=== PATIENT | male | born 1990 | race Hispanic/Latino ===

== ENCOUNTER 2017-09-26 15:13 | Emergency (ER) | payer BC ==
[2017-09-26] MEDS ORDERED: NA CHLORIDE 0.9% 1,000 ML ONE (15:52)
[2017-09-26] MEDS ORDERED: KETOROLAC 30 MG/ML INJ ONE (15:52)
[2017-09-26 16:03] LABS: Absolute Lymphocytes (CBC) 1.6 K/uL (0.7-4.9); Absolute Monocytes 0.6 K/uL (0.1-1.3); Absolute Neutrophil 8.7 K/uL (1.8-8.0); Basophils % 0.5 % (0-1.3); Eosinophils % 1.1 % (0-4.4); Hematocrit 43.3 % (39.6-49.0); Lymphocytes % 14.2 % (15.3-44.8); MCH 29.3 pg (27.0-35.0); MCV 84.2 fL (80-100); MPV 8.8 fL (7.6-11.3); RBC Red Blood Cell Count 5.14 M/uL (4.33-5.43)
[2017-09-26 16:08] LABS: Bicarbonate 24 mEq/L (21-31); Glucose Level 276 mg/dL (65-120); Lipase 21 U/L (22-51); Sodium Level 134 mEq/L (135-145)
[2017-09-26 16:14] LABS: ALT/SGPT 60 IU/L (10-60); AST/SGOT 35 IU/L (10-42); Albumin 4.4 g/dL (3.2-5.5); Alkaline Phosphatase 80 IU/L (42-121); Amylase Level 34 U/L (28-100); BUN Blood Urea Nitrogen 9 mg/dL (6-20); Bilirubin Direct 0.1 mg/dL (0-0.2); Bilirubin Total 0.9 mg/dL (0.3-1.2); Protein, Total 8.1 g/dL (6.0-8.3)
--- NOTE | 2017-09-26 16:30 | RAD REPORT ---
EXAM DESCRIPTION: CT - Stone Protocol - 09/26/2017 4:21 pm CLINICAL HISTORY: Flank pain. COMPARISON: None. TECHNIQUE: Axial images were obtained without oral or IV contrast. Lack of contrast limits solid org an and vascular assessment. The [id number] spans the entirety of the system partially obscuring uppermost abdomen and lung bases. Coronal reformatted images were obtained and reviewed. All CT scans are performed using dose optimization technique as appropriate and may include automated exposure control or mA/KV adjustment according to patient size. FINDINGS: The lower lung vieyra are clear. Diffuse fatty liver pattern is noted. No biliary dilatation or focal lesion. Spleen is normal in size . The pancreas and adrenal glands are normal. No pathologic lymphadenopathy in the abdomen or pelvis. No urinary tract stones or obstructive uropathy. No bowel obstruction, free air, free fluid or abscess. The appendix is not identified as a discrete s tructure, however, no secondary findings of appendicitis are identified. No significant bony abnormality. IMPRESSION: No urinary tract stones or obstructive uropathy. Prominent fatty liver.
--- NOTE | 2017-09-26 17:08 | RAD REPORT ---
EXAM DESCRIPTION: US - Abdomen Exam Limited - 09/26/2017 5:02 pm CLINICAL HISTORY: Abdominal pain. COMPARISON: None. FINDINGS: Patient body habitus mildly limits quality of the study. The gallbladder demonstrates no g allstones. No pericholecystic fluid or gallbladder wall thickening. The common bile duct is normal me asuring 3 mm. The liver demonstrates no findings of intrahepatic biliary dilatation. IMPRESSION: Unremarkable examination.
[2017-09-26 17:15] LABS: Urine Blood NEGATIVE (NEG); Urine Glucose 2+ (NEG); Urine Protein 1+ (NEG); Urine Specific Gravity 1.025 (1.005-1.030)
[2017-09-26 17:40] LABS: Calcium Oxalate Crystals- Ur MODERATE (NONE SEEN); Urine Bacteria 20-50 /HPF (NONE SEEN); Urine Culture Reflex Order REFLEXED; Urine Mucus 1+ /HPF (NONE SEEN); Urine RBC <5 /HPF (NONE SEEN)
--- NOTE | 2017-09-26 18:04 | EDPHYS ---
Physician Documentation [facility] Name: Tim Daniels Age: 26 yrs Sex: Male : 1990 Arrival Date: 09/26/2017 Time: 15:17 Bed 25 Private MD: ED Physician Ronny Bowen HPI: 09/26 15:58 This 26 yrs old Male presents to ER via Ambulatory with complaints of SIDE snw PAIN. 15:58 Onset: The symptoms/episode began/occurred gradually, 4 day(s) ago, and became worse snw and became persistent. Associated signs and symptoms: Pertinent positives: abdominal pain. The patient has not experienced similar symptoms in the past. The patient has not recently seen a physician. Historical: - Allergies: 15:30 No Known Allergies; tw2 - Home Meds: 15:30 None [Active]; tw2 - PSHx: 15:30 None; tw2 - Immunization history:: Adult Immunizations up to date. - Social history:: Smoking status: Patient uses tobacco products, chewing tobacco, Patient uses alcohol, occasionally. - Ebola Screening: : Patient negative for fever greater than or equal to 101.5 degrees Fahrenheit, and additional compatible Ebola Virus Disease symptoms Patient denies travel to an Ebola-affected area in the 21 days before illness onset. ROS: 15:57 Constitutional: Negative for fever, chills, and weight loss, Eyes: Negative for injury, snw pain, redness, and discharge, ENT: Negative for injury, pain, and discharge, Neck: Negative for injury, pain, and swelling, Cardiovascular: Negative for chest pain, palpitations, and edema, Respiratory: Negative for shortness of breath, cough, wheezing, and pleuritic chest pain, splinting respirations second to right upper abd pain Back: Negative for injury and pain. 15:57 : Negative for injury, bleeding, discharge, and swelling, MS/Extremity: Negative for injury and deformity, Skin: Negative for injury, rash, and discoloration, Neuro: Negative for headache, weakness, numbness, tingling, and seizure. 15:57 Abdomen/GI: Positive for abdominal pain. Exam: 15:54 Head/Face: Normocephalic, atraumatic. Eyes: Pupils equal round and reactive to light, snw extra-ocular motions intact. Lids and lashes normal. Conjunctiva and sclera are non-icteric and not injected. Cornea within normal limits. Periorbital areas with no swelling, redness, or edema. ENT: Nares patent. No nasal discharge, no septal abnormalities noted. Tympanic membranes are normal and external auditory canals are clear. Oropharynx with no redness, swelling, or masses, exudates, or evidence of obstruction, uvula midline. Mucous membranes moist. Neck: Trachea midline, no thyromegaly or masses palpated, and no cervical lymphadenopathy. Supple, full range of motion without nuchal rigidity, or vertebral point tenderness. No Meningismus. Chest/axilla: Normal chest wall appearance and motion. Nontender with no deformity. No lesions are appreciated. 15:54 Back: No spinal tenderness. No costovertebral tenderness. Full range of motion. MS/ Extremity: Pulses equal, no cyanosis. Neurovascular intact. Full, normal range of motion. Neuro: Awake and alert, GCS 15, oriented to person, place, time, and situation. Cranial nerves II-XII grossly intact. Motor strength 5/5 in all extremities. Sensory grossly intact. Cerebellar exam normal. Normal gait. 15:54 Constitutional: The patient appears awake, anxious, obese, in obvious distress, uncomfortable. 15:54 Cardiovascular: Rate: tachycardic, Rhythm: regular, Edema: is not appreciated. 15:54 Respiratory: the patient does not display signs of respiratory distress, Respirations: shallow respirations, tachypnea, Breath sounds: are clear throughout. 15:54 Abdomen/GI: Inspection: obese Bowel sounds: normal, Palpation: moderate abdominal tenderness, severe abdominal tenderness, in the posterior aspect of right lateral abdomen and right upper quadrant. 15:54 Skin: Appearance: Temperature: hot, Moisture: diaphoretic, diaphoresis is noted. Vital Signs: 15:30 BP 182 / 107; Pulse 129; Resp 19; Temp 99.3(O); Pulse Ox 97% on R/A; Weight 158.76 kg tw2 (R); Height 5 ft. 9 in. (175.26 cm); Pain 9/10; 16:05 BP 136 / 80; Pulse 111; Resp 18; Pulse Ox 97% ; tl3 17:38 BP 108 / 60; Pulse 106; Resp 18; Pulse Ox 98% on R/A; tl3 18:25 BP 119 / 66; Pulse 103; Resp 18; Pulse Ox 97% ; tl3 15:30 Body Mass Index 51.69 (158.76 kg, 175.26 cm) tw2 MDM: 15:31 Patient medically screened. snw 18:07 Data reviewed: vital signs, nurses notes. Data interpreted: Pulse oximetry: on room air snw is 98 %. Interpretation: normal. Counseling: I had a detailed discussion with the patient and/or guardian regarding: the historical points, exam findings, and any diagnostic results supporting the discharge/admit diagnosis, lab results, radiology results, the need for outpatient follow up, to return to the emergency department if symptoms worsen or persist or if there are any questions or concerns that arise at home. Special discussion: Based on the history and exam findings, there is no indication for further emergent testing or inpatient evaluation. I discussed with the patient/guardian the need to see the primary care provider for further evaluation of the symptoms. 09/26 15:33 Order name: Amylase, Serum snw 09/26 15:33 Order name: Basic Metabolic Panel snw 09/26 15:33 Order name: CBC with Diff; Complete Time: 16:12 snw 09/26 15:33 Order name: Creatinine for Radiology; Complete Time: 16:11 snw 09/26 15:33 Order name: Hepatic Function; Complete Time: 16:15 snw 09/26 15:33 Order name: Lipase; Complete Time: 16:15 snw 09/26 15:33 Order name: Urine Microscopic Only; Complete Time: 17:43 snw 09/26 15:33 Order name: CT Stone Protocol; Complete Time: 16:36 snw 09/26 15:33 Order name: Amylase Level; Complete Time: 16:15 EDMS 09/26 15:33 Order name: Basic Metabolic Panel; Complete Time: 16:15 EDMS 09/26 16:38 Order name: US Abdomen Limited; Complete Time: 17:12 snw 09/26 17:07 Order name: Urine Dipstick--Ancillary (enter results); Complete Time: 17:21 bd 09/26 17:42 Order name: Urine Culture EDWI 09/26 15:33 Order name: IV Saline Lock; Complete Time: 15:57 snw 09/26 15:33 Order name: Labs collected and sent; Complete Time: 15:57 snw 09/26 15:33 Order name: Urine Dipstick-Ancillary (obtain specimen); Complete Time: 17:42 snw 09/26 15:59 Order name: EKG; Complete Time: 15:59 snw 09/26 15:59 Order name: EKG - Nurse/Tech; Complete Time: 17:41 snw Administered Medications: 15:56 Drug: NS 0.9% 1000 ml Route: IV; Rate: 1 bolus; Site: left forearm; tl3 17:00 Follow up: IV Status: Completed infusion; IV Intake: 1000ml tl3 15:57 Drug: TORadol 30 mg Route: IVP; Infused Over: 3 mins; Site: left forearm; tl3 17:41 Follow up: Response: No adverse reaction; Pain is decreased tl3 18:17 Drug: Cipro 500 mg Route: PO; tl3 18:26 Follow up: Response: Medication administered at discharge. tl3 18:18 Drug: fentaNYL (PF) 75 mcg Route: IM; Site: left gluteus; tl3 18:26 Follow up: Response: Medication administered at discharge. tl3 18:18 Drug: Valium 2 mg Route: PO; tl3 18:26 Follow up: Response: Medication administered at discharge. tl3 Disposition: 18:32 Co-signature as Attending Physician, Ronny Bowen MD. rn Disposition: 09/26/17 18:03 Discharged to Home. Impression: Unspecified renal colic, Strain of muscle and tendon of back wall of thorax. - Condition is Stable. - Discharge Instructions: Back Pain, Adult, Kidney Stones, Ureteral Colic, Back Injury Prevention, Ogky-vv-Tizw, Heat Therapy. - Prescriptions for Flomax 0.4 mg Oral Capsule, Sust. Release 24 hr - take 1 capsule by ORAL route once daily 1/2 hour following the same meal each day; 30 capsule. Cipro 500 mg Oral Tablet - take 1 tablet by ORAL route every 12 hours for 7 days; 14 tablet. Diclofenac Sodium 75 mg Oral Tablet Sustained Release - take 1 tablet by ORAL route 2 times per day; 30 tablet. orphenadrine citrate 100 mg Oral Tablet Sustained Release - take 1 tablet by ORAL route 2 times per day As needed; 20 tablet. - Medication Reconciliation Form, Thank You Letter, Antibiotic Education, Prescription Opioid Use form. - Follow up: Private Physician; When: 2 - 3 days; Reason: Recheck today's complaints, Continuance of care, Re-evaluation by your physician. Follow up: Emergency Department; When: As needed; Reason: Worsening of condition. Signatures: Dispatcher [employer] EDMS Jeremias Baylee, HOP FARM WORKER-C HOP FARM WORKER-Csnw Ronny Bowen MD MD rn Wise, Tara, RN RN tw2 Cheryle Niño RN RN tl3 Corrections: (The following items were deleted from the chart) 18:28 18:03 09/26/2017 18:03 Discharged to Home. Impression: Unspecified renal colic; Strain tl3 of muscle and tendon of back wall of thorax. Condition is Stable. Forms are Medication Reconciliation Form, Thank You Letter, Antibiotic Education, Prescription Opioid Use. Follow up: Private Physician; When: 2 - 3 days; Reason: Recheck today's complaints, Continuance of care, Re-evaluation by your physician. Follow up: Emergency Department; When: As needed; Reason: Worsening of condition. snw
--- NOTE | 2017-09-26 18:04 | ER ---
Nurse's Notes [facility] Name: Tim Daniels Age: 26 yrs Sex: Male : 1990 Arrival Date: 09/26/2017 Time: 15:17 Bed 25 Private MD: Diagnosis: Unspecified renal colic;Strain of muscle and tendon of back wall of thorax Presentation: 09/26 15:28 Presenting complaint: Patient states: right side pain, lower back right side and then tw2 into the front and middle of my stomach, started 4 days ago. Transition of care: patient was not received from another setting of care. Onset of symptoms was September 26, 2017. Risk Assessment: Do you want to hurt yourself or someone else? Patient reports no desire to harm self or others. Initial Sepsis Screen: Does the patient meet any 2 criteria? No. Patient's initial sepsis screen is negative. Does the patient have a suspected source of infection? No. Patient's initial sepsis screen is negative. Care prior to arrival: None. 15:28 Method Of Arrival: Ambulatory tw2 15:28 Acuity: SHABANA 3 tw2 Historical: - Allergies: 15:30 No Known Allergies; tw2 - Home Meds: 15:30 None [Active]; tw2 - PSHx: 15:30 None; tw2 - Immunization history:: Adult Immunizations up to date. - Social history:: Smoking status: Patient uses tobacco products, chewing tobacco, Patient uses alcohol, occasionally. - Ebola Screening: : Patient negative for fever greater than or equal to 101.5 degrees Fahrenheit, and additional compatible Ebola Virus Disease symptoms Patient denies travel to an Ebola-affected area in the 21 days before illness onset. Screenin:05 Abuse screen: Denies threats or abuse. Nutritional screening: No deficits noted. tl3 Tuberculosis screening: No symptoms or risk factors identified. Fall Risk None identified. Assessment: 16:05 General: Appears distressed, uncomfortable, obese, unkempt, well developed, well tl3 nourished, Behavior is calm, cooperative, appropriate for age, restless. Pain: Complains of pain in right upper quadrant and posterior aspect of right lateral abdomen Pain currently is 10 out of 10 on a pain scale. Neuro: Level of Consciousness is awake, alert, obeys commands, Oriented to person, place, time, situation, Appropriate for age. Cardiovascular: No deficits noted. Patient's skin is warm and dry. Respiratory: No deficits noted. Airway is patent Trachea midline Respiratory effort is even, unlabored, Respiratory pattern is regular, symmetrical, Breath sounds are clear bilaterally. GI: No signs and/or symptoms were reported involving the gastrointestinal system. : Reports pain urinary frequency. EENT: No signs and/or symptoms were reported regarding the EENT system. Derm: No signs and/or symptoms reported regarding the dermatologic system. Musculoskeletal: No signs and/or symptoms reported regarding the musculoskeletal system. 17:38 Reassessment: Patient appears in no apparent distress at this time. No changes from tl3 previously documented assessment. Patient and/or family updated on plan of care and expected duration. Pain level reassessed. Patient is alert, oriented x 3, equal unlabored respirations, skin warm/dry/pink. pt states pain is somewhat relieved , awaiting radiology reports. 18:25 Reassessment: Patient appears in no apparent distress at this time. No changes from tl3 previously documented assessment. Patient and/or family updated on plan of care and expected duration. Pain level reassessed. Patient is alert, oriented x 3, equal unlabored respirations, skin warm/dry/pink. Vital Signs: 15:30 BP 182 / 107; Pulse 129; Resp 19; Temp 99.3(O); Pulse Ox 97% on R/A; Weight 158.76 kg tw2 (R); Height 5 ft. 9 in. (175.26 cm); Pain 9/10; 16:05 BP 136 / 80; Pulse 111; Resp 18; Pulse Ox 97% ; tl3 17:38 BP 108 / 60; Pulse 106; Resp 18; Pulse Ox 98% on R/A; tl3 18:25 BP 119 / 66; Pulse 103; Resp 18; Pulse Ox 97% ; tl3 15:30 Body Mass Index 51.69 (158.76 kg, 175.26 cm) tw2 ED Course: 15:17 Patient arrived in ED. sb2 15:29 Triage completed. tw2 15:29 Arm band placed on. tw2 15:31 Baylee Mcdowell FNP-C is [facility]. snw 15:31 Ronny Bowen MD is Attending Physician. snw 15:35 Cheryle Niño RN is Primary Nurse. tl3 16:05 Patient has correct armband on for positive identification. Bed in low position. Call tl3 light in reach. Side rails up X 1. Adult w/ patient. Pulse ox on. NIBP on. 16:05 EKG done, by geological technician. reviewed by Baylee IVEY. sm3 16:05 No provider procedures requiring assistance completed. Inserted saline lock: 20 gauge tl3 in left forearm, using aseptic technique. 16:[address] nj 16:18 CT completed. Patient tolerated procedure well. Patient moved back from CT. mw3 16:21 CT Stone Protocol In Process Unspecified. EDMS 17:01 US Abdomen Limited In Process Unspecified. EDMS 17:01 Ultrasound completed. Patient tolerated well. aa4 17:42 Amylase, Serum Sent. tl3 17:42 Basic Metabolic Panel Sent. tl3 18:18 Urine Culture Sent. tl3 18:25 IV discontinued, intact, bleeding controlled, No redness/swelling at site. Pressure tl3 dressing applied. Administered Medications: 15:56 Drug: NS 0.9% 1000 ml Route: IV; Rate: 1 bolus; Site: left forearm; tl3 17:00 Follow up: IV Status: Completed infusion; IV Intake: 1000ml tl3 15:57 Drug: TORadol 30 mg Route: IVP; Infused Over: 3 mins; Site: left forearm; tl3 17:41 Follow up: Response: No adverse reaction; Pain is decreased tl3 18:17 Drug: Cipro 500 mg Route: PO; tl3 18:26 Follow up: Response: Medication administered at discharge. tl3 18:18 Drug: fentaNYL (PF) 75 mcg Route: IM; Site: left gluteus; tl3 18:26 Follow up: Response: Medication administered at discharge. tl3 18:18 Drug: Valium 2 mg Route: PO; tl3 18:26 Follow up: Response: Medication administered at discharge. tl3 Intake: 17:00 IV: 1000ml; Total: 1000ml. tl3 Outcome: 18:03 Discharge ordered by . micah 18:25 Discharged to home ambulatory. tl3 18:25 Condition: good 18:25 Discharge instructions given to patient, Instructed on discharge instructions, follow up and referral plans. medication usage, Demonstrated understanding of instructions, follow-up care, medications, Prescriptions given X 4. 18:28 Patient left the ED. tl3 Signatures: Dispatcher [employer] EDMS Baylee Mcdowell, SHEAR OPERATOR HELPER-C SHEAR OPERATOR HELPER-Csnw Sandhya Khan aa4 Maria D Flores, RN RN tw2 [employer] Sheri sb2 Cheryle Niño RN RN tl3 Anaid Lomax 3 Bernadine Wen mw3 Corrections: (The following items were deleted from the chart) 16:45 16:05 Pulse 111bpm; Resp 18bpm; Pulse Ox 97%; tl3 tl3
[2017-09-26] MEDS ORDERED: CIPROFLOXACIN HCL 500 MG TAB ONE (18:10)
[2017-09-26] MEDS ORDERED: FENTANYL CITR 100 MCG/2 ML ONE (18:11)
[2017-09-26] MEDS ORDERED: DIAZEPAM 2 MG TABLET ONE (18:11)
--- NOTE | 2017-09-26 18:34 | EKG ---
Test Date: 2017-09-26 Test Time: 16:05:27 Gauge And Instrument Inspector: JULISA MEASUREMENT RESULTS: Intervals: Rate: 117 [place]: 144 QRSD: 82 QT: 318 QTc: 443 [place]: P: 31 [place]: 144 QRS: 35 T: -7 INTERPRETIVE STATEMENTS: Sinus tachycardia Otherwise normal ECG Compared to ECG 02/17/2005 00:06:00 Sinus rhythm no longer present Sinus arrhythmia no longer present Electronically Signed On 09-26-17 18:33:14 CDT by Samuel Adamson
== END 2017-09-26 18:28 | disposition home or self-care (01) ==
LOC: ER 15:13
DX: N23 Unspecified renal colic (principal); S29.012A Strain of muscle and tendon of back wall of thorax, initial encounter; Z72.0 Tobacco use
CPT/HCPCS: 36415; 74176; 76377; 76705; 80048; 80076; 81003; 81015; 82150; 83690; 85025; 87086; 87088; 93005; 96361; 96372; 96374; 99285; J3010; J7030